=== PATIENT | female | born 2000 | race African-American/Black ===

== ENCOUNTER 2025-04-05 19:35 | Emergency (ER) | payer OTHER, SELFPAY ==
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
[2025-04-05 19:46] VITALS: BP 131/75; PULSE 69; RESP 20; TEMP 36.7; O2SAT 96
== END 2025-04-05 20:00 | disposition home or self-care (01) ==
LOC: EXPCOLL 19:41
PROVIDERS: Emergency Provider Registered Nurse
DX: M79.622 Pain in left upper arm (principal); S29.012A Strain of muscle and tendon of back wall of thorax, initial encounter; V49.40XA Driver injured in collision with unspecified motor vehicles in traffic accident, initial encounter; R03.0 Elevated blood-pressure reading, without diagnosis of hypertension
CPT/HCPCS: 99213; G0463